=== PATIENT | female | born 2000 | race Caucasian/White ===

== ENCOUNTER 2020-05-31 12:23 | Outpatient (CLI) | payer OTHER, SELFPAY ==
--- NOTE | 2020-05-31 | ECG_ITS ---
Measurements Intervals [place] Rate: 95 P: KS: 0 QRS: 79 QRSD: 79 T: 21 QT: 339 QTc: 427 Interpretive Statements SINUS RHYTHM WITH SINUS ARRHYTHMIA WITH TRANSIENT ECTOPIC ATRIAL RHYTHM MINIMAL Q WAVES- ANTEROLAT/INF LEADS BORDERLINE ECG Electronically Signed On 05-31-2020 13:06:06 CDT by Dino Bartlett D.O.
== END 2020-05-31 12:24 | disposition home or self-care (01) ==
PROVIDERS: PCP Pediatrics; Visit Provider Pediatrics
DX: Z02.5 Encounter for examination for participation in sport (principal); Z86.19 Personal history of other infectious and parasitic diseases
CPT/HCPCS: 93005